=== PATIENT | female | born 1950 | race Caucasian/White ===

== ENCOUNTER 2017-06-13 07:37 | Emergency (ER) | payer OTHER ==
[~2017-06-13] VITALS: Ht 154.9 cm; Wt 85.0 kg
[2017-06-13 07:39] VITALS: BP 116/82; PULSE 92; RESP 12; TEMP 99.9; O2SAT 99
[2017-06-13] MEDS ORDERED: RESP: ALBUTEROL 2.5 MG/IPRATROPIUM 0.5 MG NEB (SCH) INH ONE (08:30)
--- NOTE | 2017-06-13 08:33 | RADRPT ---
EXAM DATE/TIME: 06/13/2017 08:25 [place] COMPARISON: No previous studies available for comparison. INDICATIONS : Cough. Chest pain. Shortness of breath. MEDICAL HISTORY : None. SURGICAL HISTORY : None. ENCOUNTER: Initial ACUITY: 3 days PAIN SCORE: 7/10 LOCATION: Bilateral chest FINDINGS: The lungs are clear without infiltrate, nodule, or mass. There is no appreciable pleural effusion fo r technique. Heart and mediastinum are unremarkable. Degenerative changes and hypertrophic changes a re seen within the disc space and facets of the thoracic spine with mild scoliosis. CONCLUSION: No acute cardiopulmonary disease. Alison Marti MD on June 13, 2017 at 8:30 Board Certified Radiologist. This report was verified electronically.
--- NOTE | 2017-06-13 08:41 | PD ---
HPI Chief Complaint: Cold / Flu Symptoms Time Seen by Provider: 07:52 Travel History International Travel<30 days: No Contact w/Intl Traveler<30days: No Traveled to known affect area: No History of Present Illness HPI 67-year-old female presents the emergency department with 2 day history of upper respiratory symptoms including headache, sore throat, cough which is nonproductive, and chest and head congestion. Patient has felt feverish but has not taken her temperature. Has had nausea and decreased appetite but no vomiting or diarrhea. Patient denies chest pain but has generalized myalgias which are severe. Patient has no significant medical history such as asthma or bronchitis in the past. She is a nonsmoker. She has a history of allergies of ciprofloxacin and metronidazole, and minocycline. PFSH Past Medical History Cardiovascular Problems: Yes (ABLATION ) ?: Not Social History Alcohol Use: Yes Tobacco Use: No Substance Use: No Allergies-Medications (Allergen,Severity, Reaction): Coded Allergies: ciprofloxacin (Verified Allergy, Intermediate, 06/13/17) metronidazole (Verified Allergy, Intermediate, 06/13/17) minocycline (Verified Allergy, Intermediate, 06/13/17) Reported Meds & Prescriptions Reported Meds & Active Scripts Active No Active Prescriptions or Reported Medications Review of Systems Except as stated in HPI: all other systems reviewed are Neg General / Constitutional: Positive: Fever, Chills (subjective) Eyes: No: Visual changes HENT: No: Headaches Cardiovascular: No: Chest Pain or Discomfort Respiratory: Positive: Cough, Shortness of Breath, No: Wheezing, Sneezing, Orthopnea, Hemoptysis, Night Sweats, Pleuritic Pain Gastrointestinal: No: Abdominal Pain Genitourinary: No: Dysuria Musculoskeletal: No: Pain Skin: No Rash Neurologic: No: Weakness Psychiatric: No: Depression Endocrine: No: Polydipsia Hematologic/Lymphatic: No: Easy Bruising Physical Exam Narrative GENERAL: Patient appears mildly ill but not septic. SKIN: Warm and dry. Normal color. Normal turgor. HEAD: Atraumatic. Normocephalic. EYES: Pupils equal and round. No scleral icterus. No injection or drainage. ENT: No nasal bleeding. Mucous membranes pink and moist. Clear rhinitis is noted. Posterior pharynx is unremarkable. No significant tonsillitis. Uvula is midline. Airway is patent. No sinus tenderness to palpation or percussion. NECK: Trachea midline. Supple and nontender without lymphadenopathy. CARDIOVASCULAR: Regular rate and rhythm. RESPIRATORY: No accessory muscle use. Generally coarse breath sounds with mild wheezing and to auscultation. Breath sounds equal bilaterally. GASTROINTESTINAL: Abdomen soft, non-tender, nondistended. Hepatic and splenic margins not palpable. MUSCULOSKELETAL: Extremities without clubbing, cyanosis, or edema. No obvious deformities. NEUROLOGICAL: Awake and alert. No obvious cranial nerve deficits. Motor grossly within normal limits. Five out of 5 muscle strength in the arms and legs. Normal speech. PSYCHIATRIC: Appropriate mood and affect; insight and judgment normal. Data Data Last Documented VS Vital Signs Date Time Temp Pulse Resp B/P (MAP) Pulse Ox O2 Delivery O2 Flow Rate FiO2 06/13/17 08:07 18 99 Room Air 06/13/17 07:39 99.9 92 116/82 (93) Orders Orders Chest, Single Ap (06/13/17 08:16) Influenzae A/B Antigen (06/13/17 08:16) Albuterol-Ipratropium Neb (Duoneb Neb) (06/13/17 08:30) MDM Medical Decision Making Medical Screen Exam Complete: Yes Emergency Medical Condition: Yes Differential Diagnosis Upper respiratory infection. Bronchitis. Influenza. Wheezing Narrative Course Chest x-ray is ordered as well as DuoNeb 1. Rapid influenza sent to the lab Rapid influenza test is negative Chest x-ray shows no acute process. Patient had no relief with the DuoNeb. Patient is felt to have influenza despite the negative nasal swab. Patient will be treated with Tamiflu 75 mg twice a day 5 days. Patient also given prednisone 20 mg daily for 5 days. Patient take [id number] off medicines as needed, rest and push fluids. Patient to follow up if symptoms do not improve or worsen as needed. Diagnosis Primary Impression: Influenza Referrals: Primary Care Physician Patient Instructions: General Instructions, H1N1 Influenza (ED) Additional Instructions: Patient is felt to have influenza despite the negative nasal swab. Patient will be treated with Tamiflu 75 mg twice a day 5 days. Patient also given prednisone 20 mg daily for 5 days. Patient take [id number] off medicines as needed, rest and push fluids. Patient to follow up if symptoms do not improve or worsen as needed. Med/Other Pt SpecificInfo: Prescription(s) given Scripts Prednisone (Prednisone) 20 Mg Tab 20 MG PO DAILY for 5 Days, #5 TAB 0 Refills Prov: Destiny Hill MD 06/13/17 Oseltamivir (Tamiflu) 75 Mg Cap 75 MG PO BID for Mgmt Viral Infection for 5 Days, #10 CAP 0 Refills Prov: Destiny Hill MD 06/13/17 Disposition: 01 DISCHARGE HOME Condition: Stable Onel Mckeon Jun 13, 2017 08:41
[2017-06-13] MEDS ORDERED: OSEL75 PO (09:15)
[2017-06-13] MEDS ORDERED: PRED20 PO (09:15)
== END 2017-06-13 09:31 | disposition home or self-care (01) ==
LOC: NEPD 07:37
DX: J11.1 Influenza due to unidentified influenza virus with other respiratory manifestations (principal); R11.0 Nausea; Z88.8 Allergy status to other drugs, medicaments and biological substances
CPT/HCPCS: 71045; 87804; 94664; 99284